=== PATIENT | male | born 1985 | race Caucasian/White ===

== ENCOUNTER 2021-03-30 07:12 | Emergency (ER) | payer OTHER, SELFPAY ==
[2021-03-30 07:17] VITALS: BP 125/72; PULSE 126; RESP 17; TEMP 37.1; O2SAT 99; BMI 21.2
--- NOTE | 2021-03-30 07:27 | EDS_ITS ---
HPI History of Present Illness Chief Complaint: Back Informant: patient Narrative Narrative: 36-year-old male presents the emergency room for back pain. Patient is originally from [place] currently in town working at [employer]. He states that 2 years ago he had a back injury and was subsequently given gabapentin and Mobic. He has been taking those regularly and has not had a problem with the back since then. He states that 2 days ago upon waking up he had pain mostly on the left low back. He states it feels like a spasm. He was unable to sleep last night. He denies any radicular symptoms. No bowel or bladder symptoms. He states that as long as he is up and moving he is okay but whenever he stops and rest the back gets tight again. No red flag history such as steroid use or recent injections. He states he has had his back imaged ap proximately 6 or 7 times in the past 2 years and have been negative. [facility] Medical History Back pain Depression Home Medications diazepam 5 mg PO Q8 PRN #15 tab 03/30/21 [Rx Last Taken Unknown] hydrocodone-acetaminophen 1 tab PO Q6H PRN PRN 3 Days #12 tablet 03/30/21 [Rx Last Taken Unknown] meloxicam [Mobic] 7.5 mg PO DAILY 03/30/21 [History Last Taken Unknown] sertraline [Zoloft] 0 mg PO DAILY 03/30/21 [History Last Taken Unknown] Allergy/AdvReac Type Severity Reaction Status Date / Time No Known Allergies Allergy Verified 03/30/21 07:13 Surgical History S/P cervical spinal fusion Social History (Updated 03/30/21 @ 07:[address] Diogo Kyle DO) Smoking Status: Current every day smoker tobacco type: cigarettes alcohol intake: current alcohol intake frequency: holidays/special occasions only substance use type: does not use ROS ROS ED Constitutional Constitutional ED: Denies chills or weight loss Eyes Eyes: Denies change in vision or diplopia ENT ENT ED: Denies ear pain, rhinorrhea or sore throat Cardiovascular Cardiovascular: Denies chest pain, orthopnea, palpitations or racing heartbeat Respiratory/Chest Respiratory/Chest: Denies cough, dyspnea or orthopnea Gastrointestinal Gastrointestinal: Denies abdominal pain, diarrhea, nausea or vomiting Genitourinary Genitourinary ED: Denies dysuria, hematuria or urinary frequency Musculoskeletal Musculoskeletal: Reports back pain; Denies arthralgias, myalgias or neck pain Integumentary Denies abscess or rash Neurologic Neurologic: Denies headache(s) or weakness Psychiatric Psychiatric: Denies anxiety, depression, suicidal ideation or suicidal thoughts Endocrine Endocrinology: Denies polydipsia, polyphagia or polyuria Allergic/Immunologic Allergic/Immunologic ED: Denies mouth swelling, tongue swelling or urticaria EXAM Physical Exam Const Vital Signs: 03/30/21 07:17 Temperature 98.8 F Temperature Source Oral Pulse Rate 126 H Respiratory Rate 17 Blood Pressure 125/72 H Blood Pressure Mean 89 Pulse Ox 99 Oxygen Delivery Method Room Air Positive well nourished and well developed General Appearance ED: well developed HEENT Reports normocephalic, head/scalp atraumatic and moist mucous membranes Eyes PERRL and EOMs intact bilaterally Neck no lymphadenopathy, supple and no JVD Resp normal respiratory effort and clear to auscultation bilaterally Cardio regular rate, regular rhythm and no murmurs GI normal to inspection, nondistended, normoactive bowel sounds and non-tender Palpation: soft Back/Spine no CVA tenderness and normal ROM Back/Spine Narrative: Palpable left lumbar paraspinal muscle spasm. No midline tenderness. Painful range of motion. Normal strength and sensation of the legs. Extremity normal to inspection General Extremety ED: Negative for edema General Extremity: Negative for edema Neuro oriented x3 and CN's II-XII intact bilaterally Sensorium / Orientation: alert Motor Exam: strength 5/5 throughout Deep Tendon Reflexes: Rt Patellar (L4): 2+, Lt Patellar (L4): 2+, Rt Ankle (S1): 2+ and Lt Ankle (S1): 2+ Deep Tendon Reflexes Back: Rt Patellar (L4): 2+, Lt Patellar (L4): 2+, Rt Ankle (S1): 2+ and Lt Ankle (S1): 2+ Psych mental status grossly normal Mood & Affect: Negative for depressed or tearful Skin no rashes or lesions noted and no wounds MDM MDM MDM Narrative Medical decision making narrative: Patient will be given a dose of Toradol. Patient will prescribed Valium and a few [place]. Continue the Mobic and gabapentin. Work note will be given. Gentle stretching rest and heat advised return if worsening or concerns Discharge Plan Triage Chief Complaint: Back ED Provider: Diogo Kyle Dx/Rx/DC Orders Clinical Impression: Lumbar paraspinal muscle spasm, Acute back pain Instructions: ED Back Spasm, No Trauma Prescriptions: New hydrocodone-acetaminophen [hydrocodone-acetaminophen] 1 TABLET tablet 1 tab PO Q6H PRN PRN (Reason: Pain) 3 Days Qty: 12 RF: 0 diazepam [diazepam] 5 MG tablet 5 mg PO Q8 PRN (Reason: Muscle Spasm) Qty: 15 RF: 0 No Action meloxicam [Mobic] 7.5 mg Tablet 7.5 mg PO DAILY RF: 0 sertraline [Zoloft] 20 mg/mL Concentrate 0 mg PO DAILY RF: 0 Primary Care Provider: Care Physician,No Primary Referrals: Ninoska Loving DO [STAFF PHYSICIAN] - As Needed Care Physician,No Primary [Primary Care Provider] - Disposition Disposition: Home, Self Care
[2021-03-30] MEDS: Ketorolac 60 MG/2 ML Vial IM (07:32)
== END 2021-03-30 08:04 | disposition home or self-care (01) ==
LOC: ED 07:47
PROVIDERS: Emergency Provider Emergency Medicine
DX: M62.830 Muscle spasm of back (principal); M54.5 Low back pain; F17.210 Nicotine dependence, cigarettes, uncomplicated
CPT/HCPCS: 96372; 99282

== ENCOUNTER 2021-04-06 09:27 | Emergency (ER) | payer OTHER, SELFPAY ==
[2021-04-06 09:28] VITALS: BP 147/100; PULSE 114; RESP 18; TEMP 36.6; O2SAT 100; BMI 23.0
--- NOTE | 2021-04-06 09:56 | ED.VIS.BACK ---
HPI History of Present Illness Chief Complaint: Back Informant: patient Onset/Context/Timing Timing: Waxes and wanes Quality: Sharp and Aching Location: Lumbar Current Severity: Moderate Maximum Severity: Severe Worsened by: improves with Movement Narrative Narrative: Patient returns secondary to continued back pain. Patient was seen here several days ago and given prescription for [place]an[place] and Valium. 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 He has a history of back problems and follows with an orthopedist in [place]. He states he actually was home last weekend and saw his doctor. They gave him some different pain medication but states it does not seem to be helping. While driving back to [place] yesterday he did have some numbness in his leg but that resolved when he got up and walked around. No new injury noted. Patient is primarily looking for pain control and work restrictions for the next several days. [facility] Medical History Back fracture Back pain Depression Home Medications meloxicam [Mobic] 7.5 mg PO DAILY 03/30/21 [History Last Taken Unknown] cyclobenzaprine [Flexeril] 10 mg PO TID 04/06/21 [History Last Taken Unknown] diazepam [Valium] 5 mg PO BID PRN #10 tab 04/06/21 [Rx Last Taken Unknown] etodolac 200 mg PO Q6H PRN 04/06/21 [History Last Taken Unknown] gabapentin 300 mg PO TID 04/06/21 [History Last Taken Unknown] hydrocodone-acetaminophen 1 tab PO Q6H PRN 3 Days #14 tab 04/06/21 [Rx Last Taken Unknown] methocarbamol [Robaxin] mg 04/06/21 [History Last Taken Unknown] methylprednisolone [Medrol (Flore[place]io)] mg 04/06/21 [History Last Taken Unknown] Allergy/AdvReac Type Severity Reaction Status Date / Time No Known Allergies Allergy Verified 04/06/21 09:31 Surgical History S/P cervical spinal fusion Social History Smoking Status: Current every day smoker tobacco type: cigarettes alcohol intake: current alcohol intake frequency: holidays/special occasions only substance use type: does not use ROS ROS ED Constitutional Constitutional ED: Denies chills or fever(s) Eyes Eyes: Denies change in vision ENT ENT ED: Denies sore throat Cardiovascular Cardiovascular: Denies chest pain Respiratory/Chest Respiratory/Chest: Denies cough or dyspnea Gastrointestinal Gastrointestinal: Denies abdominal pain, diarrhea, nausea or vomiting Genitourinary Genitourinary ED: Denies dysuria Musculoskeletal Musculoskeletal: Reports back pain Integumentary Denies rash Neurologic Neurologic: Reports paresthesias; Denies headache(s) or weakness Psychiatric Psychiatric: Denies anxiety or depression Allergic/Immunologic Allergic/Immunologic ED: Denies urticaria EXAM Physical Exam Const Vital Signs: 04/06/21 09:28 Temperature 97.8 F Temperature Source Temporal Pulse Rate 114 H Respiratory Rate 18 Blood Pressure 147/100 H Blood Pressure Mean 115 Pulse Ox 100 Oxygen Delivery Method Room Air Positive well nourished and well developed General Appearance ED: well developed HEENT Reports normocephalic and head/scalp atraumatic Eyes PERRL and EOMs intact bilaterally Neck supple Chest Wall inspection of chest normal and palpation of chest normal Resp normal respiratory effort and clear to auscultation bilaterally Cardio regular rate and regular rhythm GI normal to inspection, nondistended, normoactive bowel sounds Palpation: soft Back/Spine no CVA tenderness and normal to inspection Back/Spine Narrative: Mild tenderness of the low lumbar spine. No erythema or overlying skin changes. Lumbar Spine / Lower Back: straight leg raise negative bilaterally Extremity normal to inspection Neuro oriented x3 and no sensory deficits noted Sensorium / Orientation: alert Motor Exam: strength 5/5 throughout Psych mental status grossly normal Skin no rashes or lesions noted [facility] Treatment and Re-Evaluation Comments:: Patient is going to be in town at least another 3 to 4 weeks for his job. He will be referred to local spine doctor here and if he can be seen I am sure they will work with his orthopedic doctors in [place]. Patient states he had better pain control with Fontan[place] and Valium he is given prescriptions for these. He is given work restrictions for the next 3 days. Discharge Plan Triage Chief Complaint: Back ED Provider: Rosie Rowland Dx/Rx/DC Orders Clinical Impression: Acute back pain Instructions: ED Back Pain (Acute or Chronic) Prescriptions: New hydrocodone-acetaminophen 5-325 mg tablet 1 tab PO Q6H PRN (Reason: pain) 3 Days Qty: 14 RF: 0 diazepam [Valium] 5 mg tablet 5 mg PO BID PRN (Reason: muscle spasm) Qty: 10 RF: 0 No Action meloxicam [Mobic] 7.5 mg Tablet 7.5 mg PO DAILY RF: 0 cyclobenzaprine [Flexeril] 10 mg Tablet 10 mg PO TID RF: 0 methocarbamol [Robaxin] 500 mg Tablet RF: 0 etodolac 200 mg Capsule 200 mg PO Q6H PRN (Reason: Pain) RF: 0 methylprednisolone [Medrol (Florencio)] 4 mg Tablets,Dose Pack RF: 0 gabapentin 300 mg Tablet 300 mg PO TID RF: 0 Stand Alone Forms: Work Status Form Primary Care Provider: Care Physician,No Primary Referrals: Carlos Ann DO [STAFF PHYSICIAN] - As soon as possible Care Physician,No Primary [Primary Care Provider] - Disposition Disposition: Home, Self Care Discharge Date/Time: 04/06/21 10:20
== END 2021-04-06 10:20 | disposition home or self-care (01) ==
PROVIDERS: Emergency Provider Emergency Medicine
DX: M54.5 Low back pain (principal); F17.210 Nicotine dependence, cigarettes, uncomplicated
CPT/HCPCS: 99282